=== PATIENT | male | born 1950 ===

== ENCOUNTER 2023-08-28 04:19 | Day surgery (SDC) | payer BC ==
[2023-08-26 10:19] VITALS: BMI 24.7
[2023-08-28 11:12] VITALS: TEMP 98.4
[2023-08-28 11:16] VITALS: BP 118/67; PULSE 60; RESP 20
== END 2023-08-28 11:07 | disposition home or self-care (01) ==
LOC: JASU-ENDO 04:19 → EDBD 09:45 → JASU-ENDO 11:07
PROVIDERS: ATTEND Student in an Organized Health Care Education/Training Program
PROC: 0DB98ZX Excision of Duodenum, Via Natural or Artificial Opening Endoscopic, Diagnostic (ICD-10-PCS; 2023-08-28)
PROC: 0DB78ZX Excision of Stomach, Pylorus, Via Natural or Artificial Opening Endoscopic, Diagnostic (ICD-10-PCS; 2023-08-28)
PROC: 0DB68ZX Excision of Stomach, Via Natural or Artificial Opening Endoscopic, Diagnostic (ICD-10-PCS; 2023-08-28)
PROC: 0DBK8ZX Excision of Ascending Colon, Via Natural or Artificial Opening Endoscopic, Diagnostic (ICD-10-PCS; principal; 2023-08-28 09:30)
DX: Z12.11 Encounter for screening for malignant neoplasm of colon (principal); D12.2 Benign neoplasm of ascending colon; K29.80 Duodenitis without bleeding; K44.9 Diaphragmatic hernia without obstruction or gangrene
CPT/HCPCS: 88305-TC; 88342-TC